=== PATIENT | male | born 1970 | race Caucasian/White ===

== ENCOUNTER 2020-09-01 22:06 | Inpatient (IN) | payer BC ==
[~2020-09-01] VITALS: Ht 182.9 cm; Wt 115.6 kg
[2020-09-01] MEDS ORDERED: MORPHINE SULFATE 4 MG/ML, 1ML ONE (22:19)
[2020-09-01] MEDS ORDERED: ONDANSETRON 2MG/ML, 2ML ONE (22:19)
[2020-09-01] MEDS: MORPHINE SULFATE 4 MG/ML, 1ML IVPush PRN (22:26)
[2020-09-01] MEDS ORDERED: ONDANSETRON 2MG/ML, 2ML IVPush ONE (22:30)
[2020-09-01] MEDS ORDERED: PLEASE ENTER HEIGHT AND WEIGHT MC SCH (22:30)
[2020-09-01] MEDS ORDERED: SODIUM CHLORIDE FLUSH 10ML SYR IVF ONE (22:30)
[2020-09-01] MEDS ORDERED: PLEASE ENTER ALLERGIES MC SCH (22:30)
[2020-09-01] MEDS ORDERED: SODIUM CHLORIDE 0.9% 1,000ML IVBOLUS ONE (22:30)
[2020-09-01 23:02] LABS: BASOPHILS % (AUTO) 0 % (0-1); EOSINOPHILS % (AUTO) 0 % (1-7); LYMPHOCYTES % (AUTO) 3 % (22-44); MEAN CORPUSCULAR HEMOGLOBIN 27.6 pg (27.5-34.5); MEAN CORPUSCULAR HGB CONC 32.5 g/dL (33.2-36.2); MEAN PLATELET VOLUME 8.5 fL (7.4-10.4); MONOCYTES % (AUTO) 6 % (2-9); NEUTROPHILS % (AUTO) 91 % (42-75); PLATELET COUNT 290 x10^3/uL (130-400); RED CELL DISTRIBUTION WIDTH 14.9 % (9.4-14.8)
[2020-09-01 23:15] LABS: ALBUMIN 4.7 g/dL (3.4-5.0); ANION GAP 8 mmol/L (5-15); CALCIUM 9.9 mg/dL (8.5-10.1); CHLORIDE 98 mmol/L (98-107); CREATININE 1.69 mg/dL (0.7-1.3)
[2020-09-01 23:20] LABS: ALANINE AMINOTRANSFERASE 44 U/L (12-78); ALKALINE PHOSPHATASE 100 U/L (45-117); BILIRUBIN,TOTAL 0.5 mg/dL (0.2-1.0); TOTAL PROTEIN 9.1 g/dL (6.4-8.2); TROPONIN I < 0.015 ng/mL (0.000-0.045)
[2020-09-01] MEDS ORDERED: OMNIPAQUE 350 MG/ML, 100ML BOTTLE ONE (23:30)
[2020-09-01 23:34] LABS: MD YES
[2020-09-01 23:39] LABS: ANISOCYTOSIS 1+; BAND#(MANUAL) 2.48 x10^3/uL; BANDS%(MANUAL) 15 % (0-7); LYMPHS% (MANUAL) 3 % (22-44); MONOS#(MANUAL) 1.32 x10^3/uL (0.3-2.7); MONOS% (MANUAL) 8 % (2-9); REACTIVE LYMPHS # (MANUAL) 0.33 x10^3/uL (0-0); REACTIVE LYMPHS % (MANUAL) 2 % (0-0); SEG#(MANUAL) 11.88 x10^3/uL (1.8-6.8); SEGS% (MANUAL) 72 % (42-75)
[2020-09-01 23:40] LABS: <PLATELET ESTIMATE> ADEQUATE; LARGE PLATELETS 1+; OVALOCYTES 1+
--- NOTE | 2020-09-02 00:03 | NUR ---
PY VOMITED 800CC AFTER ARRIVEL TO RM
[2020-09-02] MEDS ORDERED: SODIUM CHLORIDE 0.9% 1,000ML IVBOLUS ONE (00:30)
[2020-09-02] MEDS ORDERED: MORPHINE SULFATE 4 MG/ML, 1ML ONE ×2 (00:44→03:59)
[2020-09-02] MEDS: MORPHINE SULFATE 4 MG/ML, 1ML IVPush PRN (00:47)
[2020-09-02] MEDS ORDERED: PIPERACILLIN/TAZO/PMX 3.375GM 50 ML IV ONE (01:00)
[2020-09-02] MEDS ORDERED: PIPERACILLIN/TAZO/PMX 3.375GM 50 ML ONE (01:11)
[2020-09-02 01:14] LABS: MICROSCOPIC INDICATED
[2020-09-02] MEDS ORDERED: LABETALOL 5MG/ML, 20ML IVPush PRN (01:30)
[2020-09-02] MEDS ORDERED: ONDANSETRON 2MG/ML, 2ML IVPush PRN (01:30)
[2020-09-02] MEDS: HEPARIN 5,000 UNITS/ML, 1ML SQ SCH ×3 (01:30→16:31)
[2020-09-02] MEDS ORDERED: morphine SULFATE 10 MG/ML, 1ML IVPush PRN (01:30)
--- NOTE | 2020-09-02 02:32 | NUR ---
BREAK RN: PT RESTING IN BED, DENIES ANY NEEDS AT THIS TIME. CALL LIGHT IN REACH.
[2020-09-02] MEDS ORDERED: HEPARIN 5,000 UNITS/ML, 1ML ONE (02:55)
--- NOTE | 2020-09-02 03:53 | NUR ---
LEAVING FOR THE DAY, LEFT HER NUMBER AND HER DAUGHTER'S NUMBER. YAMIL ELI () [phone] JA BERGER (DAUGHTER) [phone]
--- NOTE | 2020-09-02 04:09 | NUR ---
PT OVERNIGHT HAS VOMITED 4 TO 5 TIMES EACH TIME FROM 400CC TO 800CC REFUSES NG/OG HAS HAD BEFORE STATES NEVER AGAIN, HAD A PAIN LEVEL OF 8 GAVE 4MG MORPHINE NOW RESTING COMFORTABLE....
--- NOTE | 2020-09-02 05:33 | NUR ---
REPORT GIVEN DAVID LI
[2020-09-02 06:04] VITALS: BP 110/77
[2020-09-02] MEDS: SODIUM CHLORIDE 0.9% 1,000 ML IV SCH ×2 (06:22→15:12)
[2020-09-02] MEDS: CEFTRIAXONE PMX 1GM/50ML 50 ML IV SCH (07:45)
[2020-09-02] MEDS: METRONIDAZOLE PMX 500MG/100ML 100 ML IV SCH ×3 (09:17→21:07)
[2020-09-02 19:55] VITALS: BP 122/77
[2020-09-03] MEDS: HEPARIN 5,000 UNITS/ML, 1ML SQ SCH ×2 (01:06→10:33)
[2020-09-03 01:36] VITALS: BP 125/73
[2020-09-03] MEDS: METRONIDAZOLE PMX 500MG/100ML 100 ML IV SCH ×2 (03:13→10:33)
[2020-09-03 05:44] LABS: BASOPHILS % (AUTO) 0 % (0-1); EOSINOPHILS % (AUTO) 2 % (1-7); LYMPHOCYTES % (AUTO) 28 % (22-44); MEAN CORPUSCULAR HEMOGLOBIN 27.7 pg (27.5-34.5); MEAN CORPUSCULAR HGB CONC 32.1 g/dL (33.2-36.2); MEAN PLATELET VOLUME 8.3 fL (7.4-10.4); MONOCYTES % (AUTO) 9 % (2-9); NEUTROPHILS % (AUTO) 61 % (42-75); PLATELET COUNT 209 x10^3/uL (130-400); RED BLOOD COUNT 4.72 x10^6/uL (4.38-5.82); RED CELL DISTRIBUTION WIDTH 14.5 % (9.4-14.8)
[2020-09-03 05:50] LABS: CALCIUM 7.3 mg/dL (8.5-10.1); CREATININE 1.18 mg/dL (0.7-1.3)
[2020-09-03 06:12] LABS: ANION GAP 4 mmol/L (5-15); CHLORIDE 105 mmol/L (98-107)
[2020-09-03 06:41] LABS: MD NO
[2020-09-03 07:25] VITALS: BP 130/78
[2020-09-03] MEDS: CEFTRIAXONE PMX 1GM/50ML 50 ML IV SCH (08:15)
[2020-09-03] MEDS ORDERED: METR500T PO (11:04)
[2020-09-03] MEDS ORDERED: AMOX1TAB12 PO (11:04)
== END 2020-09-03 12:28 | disposition home or self-care (01) | DRG 871 ==
LOC: ED 09-02 00:40 → EDIP 09-02 00:59 → 4NE 09-02 05:56 → DCLOUNGE 09-03 12:23
PROVIDERS: ADMIT Family Medicine; ATTEND Family Medicine
DX: A41.9 Sepsis, unspecified organism (principal); J96.01 Acute respiratory failure with hypoxia; E87.2 Acidosis; K56.600 Partial intestinal obstruction, unspecified as to cause; N17.9 Acute kidney failure, unspecified; D17.5 Benign lipomatous neoplasm of intra-abdominal organs; E11.22 Type 2 diabetes mellitus with diabetic chronic kidney disease; I12.9 Hypertensive chronic kidney disease with stage 1 through stage 4 chronic kidney disease, or unspecified chronic kidney disease; J84.10 Pulmonary fibrosis, unspecified; K52.9 Noninfective gastroenteritis and colitis, unspecified; K76.9 Liver disease, unspecified; N18.9 Chronic kidney disease, unspecified; N40.0 Benign prostatic hyperplasia without lower urinary tract symptoms; R65.20 Severe sepsis without septic shock; Z87.442 Personal history of urinary calculi
CPT/HCPCS: 36415; 71045; 71275; 74177; 80048; 80053; 81001; 83605; 83690; 83880; 84145; 84484; 85025; 87040; 93005; 96361; 96374; 96375; 96376; 99291; G0378; J0696; J1644; J2405; J2543; Q9967; J2270; J7030